=== PATIENT | male | born 1970 | race African-American/Black ===

== ENCOUNTER 2016-12-06 14:27 | Emergency (ER) | payer MEDICAID ==
[~2016-12-06] VITALS: Ht 175.3 cm; Wt 91.0 kg
[2016-12-06] MEDS ORDERED: CYCLOBENZAPRINE 10MG TABLET PO ONE (19:30)
[2016-12-06] MEDS ORDERED: KETOROLAC 30MG/ML VIAL IM ONE (19:30)
[2016-12-06 20:29] VITALS: BP 136/74
== END 2016-12-06 20:31 | disposition home or self-care (01) ==
LOC: ER 19:47
DX: S30.0XXA Contusion of lower back and pelvis, initial encounter (principal); S10.93XA Contusion of unspecified part of neck, initial encounter; V49.49XA Driver injured in collision with other motor vehicles in traffic accident, initial encounter; Y93.89 Activity, other specified; Y92.410 Unspecified street and highway as the place of occurrence of the external cause; R03.0 Elevated blood-pressure reading, without diagnosis of hypertension
CPT/HCPCS: 96372; 99283; J1885

== ENCOUNTER 2020-03-07 16:43 | Emergency (ER) | payer MEDICAID ==
[~2020-03-07] VITALS: Ht 170.2 cm; Wt 91.0 kg
[2020-03-07] MEDS ORDERED: MORPHINE SULFATE 4 MG/ML CPJ (NOT FOR IM USE) IV STA (16:59)
[2020-03-07] MEDS ORDERED: SODIUM CHLORIDE 0.9% 2,000 ML IV ONE (17:00)
[2020-03-07] MEDS ORDERED: TETANUS, DIPHTHERIA, PERTUSSIS VAC/PF 0.5ML (>7YR OLD) IM ONE (17:00)
[2020-03-07 17:07] VITALS: BP 154/96
[2020-03-07 17:10] LABS: BASOPHILS % 0.6 % (0.0-2.0); HEMOGLOBIN. 16.5 g/dL (14.0-18.0); LYMPHOCYTES % 9.6 % (20.0-50.0); MEAN CORPUSCULAR HEMOGLOBIN 32.3 pg (28.0-32.0); MEAN CORPUSCULAR VOLUME 96.1 fL (80.0-94.0); MEAN PLATELET VOLUME 8.9 fl (7.4-10.4); MONOCYTES % 9.4 % (2.0-8.0); NEUTROPHILS % 80.4 % (40.0-76.0); PLATELET 252 x1000/uL (130-400); RED CELL DISTRIBUTION WIDTH 13.5 % (11.6-14.6)
[2020-03-07 17:15] LABS: CHLORIDE 108 mEq/L (98-107)
[2020-03-07 17:21] LABS: INR 1.2; PARTIAL THROMBOPLASTIN TIME 22.8 sec (23.4-31.0); PROTHROMBIN TIME 12.2 sec (9.6-11.0)
== END 2020-03-07 17:08 | disposition short-term general hospital (02) ==
LOC: ER 16:43
DX: S21.131A Puncture wound without foreign body of right front wall of thorax without penetration into thoracic cavity, initial encounter (principal); W34.00XA Accidental discharge from unspecified firearms or gun, initial encounter; Y93.89 Activity, other specified; Y92.89 Other specified places as the place of occurrence of the external cause; Y99.8 Other external cause status
CPT/HCPCS: 36415; 71045; 80053; 83690; 85025; 85610; 85730; 86850; 86900; 86901; 90471; 90715; 96361; 96374; 99285; J2270; J7030